=== PATIENT | male | born 1980 | race African-American/Black ===

== ENCOUNTER 2017-04-10 10:44 | Emergency (ER) | payer MEDICAID ==
[~2017-04-10] VITALS: Ht 182.9 cm; Wt 65.8 kg
[2017-04-10 10:44] VITALS: BP 143/89
== END 2017-04-10 12:16 | disposition home or self-care (01) ==
LOC: ER 10:46
DX: S60.221A Contusion of right hand, initial encounter (principal); F17.210 Nicotine dependence, cigarettes, uncomplicated; Y04.0XXA Assault by unarmed brawl or fight, initial encounter; Y93.89 Activity, other specified; Y92.89 Other specified places as the place of occurrence of the external cause; Y99.8 Other external cause status
CPT/HCPCS: 73130; 99284; A4606; Z7610